=== PATIENT | female | born 1990 | race Caucasian/White ===

== ENCOUNTER → 2019-07-15 09:12 | Outpatient (CLI) | payer MEDICAID, SELFPAY ==
[2019-07-15 11:12] LABS: Estradiol 13.5 pg/mL; Follicle Stimulating Hormone 5.9 mIU/mL; Thyroid Stim Hormone (TSH) 2.02 uIU/mL (0.358-3.74)
[2019-07-15 11:31] LABS: Progesterone Level 0.47 ng/mL (See Comment)
[2019-07-18 08:08] LABS: Testosterone, % Free 1.79 % (0.50-2.80); Testosterone, Free 0.13 ng/dL (0.10-0.85); Testosterone, Total 7 ng/dL (8-48)
[2019-07-18 15:47] LABS: DHEA Sulfate 87.3 ug/dL (84.8-378.0)
== END ==
PROVIDERS: Family Provider Family Medicine; PCP Family Medicine
DX: R68.82 Decreased libido (principal); R61 Generalized hyperhidrosis
CPT/HCPCS: 36415; 82627; 82670; 83001; 84144; 84402; 84403; 84443; 82626

== ENCOUNTER → 2019-09-04 12:41 | Outpatient (CLI) | payer MEDICAID, SELFPAY ==
--- NOTE | 2019-09-04 12:45 | CT_ITS ---
STUDY: CT MAXILLOFACIAL SINUSES REASON FOR EXAM: Female, 28 years old. ALLERGIC RHINITIS DUE TO POLLEN, DEVIATED SEPTUM. RADIATION DOSAGE (If Supplied By Facility): CTDIvol = ( 29.38 ) mGy, DLP = ( 569.49 ) mGycm TECHNIQUE: The patient was scanned in a multi detector CT scanner. High resolution axial imaging was performed without the administration of intravenous contrast material. Sagittal and coronal images were reconstructed. Individualized dose optimization techniques were used for this CT. COMPARISON: None. FINDINGS: FRONTAL SINUSES: Normal aeration, without mucosal inflammatory disease. ETHMOIDAL SINUSES: Normal aeration, without mucosal inflammatory disease. MAXILLARY SINUSES: There is opacification of the right maxillary sinus. Minimal mucosal thickening of the right ethmoid sinus. SPHENOIDAL SINUSES: Normal aeration, without mucosal inflammatory disease. There is mucosal thickening along the right ostiomeatal complex. Normal bilateral middle turbinates. Normal bilateral inferior turbinates. Normal midline nasal septum. There is patency of the bilateral nasal airways. The visualized osseous structures are normal. The visualized bilateral orbital contents are normal. CT/Sinus/Facial Bone IMPRESSION: Opacification of the right maxillary sinus. Electronically Signed: Alan Mccarthy, at 13:09 EST , Service support ,
== END ==
LOC: CT 12:43
PROVIDERS: PCP Registered Nurse; Referring Provider Otolaryngology; Visit Provider Otolaryngology
DX: J30.1 Allergic rhinitis due to pollen (principal)
CPT/HCPCS: 70486

== ENCOUNTER → 2024-03-14 | Outpatient (CLI) | payer MEDICAID, SELFPAY ==
[2024-03-14 10:29] LABS: Absolute Lymphocyte Count 2.59 X10^3/uL (0.83-4.51); Absolute Neutrophil Count 2.4 X10^3/uL (2.0-7.7); Basophil# 0.05 X10^3/uL; Basophil% 0.9 % (0-1); Eosinophil# 0.24 X10^3/uL; Eosinophils% 4.3 % (0-5); Hematocrit 41.5 % (37-47); Hemoglobin 13.3 g/dL (12.0-15.0); Lymphocyte # 2.59 X10^3/ul (0.83-4.51); Lymphocyte % 46.3 % (19-41); Mean Corpuscular Hgb 29.2 pg (27.0-32.0); Mean Platelet Vol. 10.4 fl (6.2-12.0); Monocyte# 0.28 X10^3/uL; NRBC Flagged by Analyzer 0 % (0-5); Neutrophil # 2.43 X10^3/uL (2.7-7.7); Neutrophil % 43.3 % (47-70); Platelet Count 226 K/mm3 (150-450); RBC Distribution Width CV 12.8 % (11.6-14.6); RBC Distribution Width SD 42.4 fl (35.1-43.9); Red Blood Count 4.56 M/mm3 (4.2-5.4); White Blood Count 5.6 K/mm3 (4.4-11.0)
[2024-03-14 10:50] LABS: Vitamin D,25 Hydroxy 40.7 ng/mL
[2024-03-14 11:17] LABS: Magnesium 2.4 mg/dL (1.6-2.6); T4 Free Direct 0.87 ng/dL (0.76-1.46); Thyroid Stim Hormone (TSH) 1.53 uIU/mL (0.358-3.74)
[2024-03-16 10:41] LABS: Thyroid Peroxidase AB < 9 IU/mL (0-34)
== END | disposition home or self-care (01) ==
LOC: LAB 09:17
PROVIDERS: PCP Registered Nurse; Referring Provider Nurse Practitioner Women's Health; Visit Provider Nurse Practitioner Women's Health
DX: Z13.21 Encounter for screening for nutritional disorder (principal); R53.83 Other fatigue; Z13.29 Encounter for screening for other suspected endocrine disorder
CPT/HCPCS: 36415; 82306; 83735; 84439; 84443; 85025; 86376

== ENCOUNTER → 2024-07-08 | Outpatient (CLI) | payer MEDICAID, SELFPAY ==
--- NOTE | 2024-07-08 08:22 | NM_ITS ---
CLINICAL: 33-year-old female with history of postprandial nausea. SEMI-SOLID PHASE 99m Tc SULFUR COLLOID GASTRIC EMPTYING STUDY COMPARISON: None available FINDINGS: The patient was administered 1.1 mCi of 99m Tc sulfur colloid mixed with oatmeal and consumed per os. Image acquisitions in the anterior-posterior projections for a total of 60 minutes. There is prompt visualization of the stomach. There is no gastroesophageal reflux identified. The T ? raw data emptying was calculated to be 53.59 minutes, (Normal: 12-56 minutes). NM/Gastric Emptying Study IMPRESSION: 1. NORMAL 99m Tc sulfur colloid semi-solid phase (oatmeal) gastric emptying imaging examination. A. There is normal and preserved semi-solid phase gastric emptying compared to normal controls. (Mehdi et al, J Nucl Med Tech 38: 186, 2010). Electronically Signed: Damir Reyes DO at 8:31 EST ,
== END | disposition home or self-care (01) ==
LOC: NM 08:21
PROVIDERS: PCP Registered Nurse
DX: R11.0 Nausea (principal)
CPT/HCPCS: 78264; A9541

== ENCOUNTER → 2024-10-07 | Outpatient (CLI) | payer MEDICAID, SELFPAY ==
--- NOTE | 2024-10-07 15:00 | SP.MBSS_ITS ---
Modified Barium Swallow Patient Information Study Date: 10/07/24 Study Time: 13:00 Direct Billable Minutes: 76 Total Minutes procedure & reportin Diagnosis: Dysphaiga R13.10 Referring Physician: Nadira Appiah Reason for Referral: Assess swallow function, assess risk for aspiration, and determine recommendations for least restrictive diet textures and compensatory strategies to improve safety of swallow. Medical History: Pt referred for MBSS and esophagram after GI office visit for dysphagia 09/09/24. Pt is having difficulty swallowing pills and foods w/ sensation of them becoming caught in her throat. She denies hx of choking, but feels this globus sensation makes it feel harder to breath, as if her throat is tightening. She denies choking or need for Heimlich. She reports this difficulty has occurred for the past 9 months. It was much better w/ Protonix, but when taken off this medication it became much worse. She then went back on the medication and her swallowing difficulty was slightly better. She is now on omeprazole, which somewhat helps. PMH: Dysphagia, IBS, Nausea, Fatigue, GERD. Current Diet Ordered: Regular textures / Thin liquids Dentition: WNL and Natural Teeth Mental Status: WNL Respiratory Status: Oxygenating on Room Air Penetration-Aspiration Scale Penetration-Aspiration Scale: OBJECTIVE ASSESSMENT OF SWALLOW FUNCTION (QUANTITATIVE ? PER TRIAL): PENETRATION / ASPIRATION SCALE (SHELL): 1 = does not enter airway 2 = enters airway/above vocal folds/ejected 3 = enters airway/above vocal folds/not ejected 4 = enters airway/contacts vocal folds/ejected 5 = enters airway/contacts vocal folds/not ejected 6 = enters airway/below vocal folds/ejected 7 = enters airway/below vocal folds/not ejected despite effort 8 = enters airway/below vocal folds/no effort VIDEOFLOROSCOPIC SCALE SCORE (SHELL): Grade I = aspiration of material that has penetrated into the laryngeal vestibule, intact cough reflex Grade II = aspiration < 10 % of the bolus, intact cough reflex Grade III = aspiration of < 10 % of the bolus, reduced cough reflex or aspiration of > 10 % of the bolus, intact cough reflex Grade IV = aspiration of > 10 % of the bolus, reduced cough reflex Penetration-Aspiration Scale Score Thin Liquid via teaspoon: Result: 1= does not enter airway Thin Liquid via teaspoon Trial 2: Result: 1= does not enter airway Thin Liquid via small single sip: cup: Result: 1= does not enter airway [place] Thick Liquid via small single sip: cup: Result: 1= does not enter airway Pudding via teaspoon: Result: 1= does not enter airway Comment: Esophageal screen - Retention throughout esophagus, which mostly cleared w/ thin liquid wash during following trial. Thin Liquid via single sip: straw: Result: 1= does not enter airway Thin Liquid via sequential sips:straw: Result: 1= does not enter airway 1/2 Cookie: Result: 1= does not enter airway Comment: Esophageal screen - Retention throughout esophagus, which mostly cleared w/ thin liquid wash. Barium Tablet w/ water: Result: 1= does not enter airway Comment: Esophageal screen - Complete clearance. Oral Phase Labial Seal: No Labial Escape Tongue Control During Bolus Hold: Cohesive bolus between tongue to palatal seal Bolus Preparation/Mastication: Timely and efficient chewing and mashing Bolus Transport/Lingual Motion: Brisk tongue motion Oral Residue: Trace residue lining oral structures Pharyngeal Phase Initiation of Pharyngeal Swallow: Bolus head in valleculae Soft Palate Elevation: Trace column of contrast/air between soft palate and pharyngeal wall Laryngeal Elevation: Comp. Superior move thyroid cart w/comp. apprx arytenoid cart-epig pet Anterior Hyoid Excursion: Partial anterior movement Epiglottic Movement: Complete inversion Laryngeal Vestibule Closure at Height of Swallow: Complete; no air/contrast in laryngeal vestibule Pharyngeal Stripping Wave: Present - diminished Pharyngoesophageal Segment Opening: Complete distension and complete duration; no obstruction of flow Tongue Base Retraction: Trace column of contrast between tongue base & post. pharyngeal wall Pharyngeal Residue: Trace residue within or on pharyngeal structures Esophageal Phase Esophageal Clearance: Esophageal retention Diagnosis/Impression Diagnosis: Oropharyngeal swallow function grossly WNL; Esophageal dysphagia R13.14 Impression: Oropharyngeal swallow function grossly WNL. The esophageal phase is primarily marked by... -Retention of cookie and pudding throughout the esophagus, which mostly cleared w/ thin liquid washes. Recommendations Diet: Regular Textures (Moisten dry textures) and Thin Liquids Compensatory Strategies: Small Bites, Small Sips, Slow Rate, Alternate bi patrice/solids and sips/liquids (1:1 ratio), Sitting upright and Remain sitting upright for 30 minutes after PO intake Recommend Repeat Modified Barium Swallow: No Need for Skilled Speech Therapy Services: No Recommended Referrals: GI Consult (Ok for participation in esophagram, continue to follow w/ OP GI) and ENT Consult (Would consider nasopharyngoscopy due to globus sensation making pt feel that it is more difficult to breathe at times) Education Completed: 1. Described result of evaluation. Status Active ST Patient: Active Contact Information [facility] Speech Therapy:: Nikki Pelletier M.A. CCC-MEETING/EVENT PLANNER? Speech-Language Pathologist?? [facility] [address] [place] [address]? [email or web address]?? [phone]
== END | disposition home or self-care (01) ==
LOC: RAD 12:44
PROVIDERS: PCP Registered Nurse; Referring Provider Nurse Practitioner Acute Care; Visit Provider Nurse Practitioner Acute Care
DX: R13.10 Dysphagia, unspecified (principal); K58.0 Irritable bowel syndrome with diarrhea; R11.0 Nausea; R53.82 Chronic fatigue, unspecified
CPT/HCPCS: 74230; 92611

== ENCOUNTER → 2024-10-10 | Outpatient (CLI) | payer MEDICAID, SELFPAY ==
--- NOTE | 2024-10-10 08:20 | RAD_ITS ---
PROCEDURE: ESOPHAGUS DUAL CONTRAST REASON FOR EXAM: Upper esophageal dysphagia. TECHNIQUE: Following the ingestion of effervescent granules and high density barium, swallowing mechanism was evaluated under fluoroscopy in the oblique, AP, lateral, and RPO positions. Barium tablet was also utilized. Imaging sequences were documented as usual. FLUOROSCOPIC TIME: 64 sec Dose: 6.31 mGy FLUOROGRAPHIC IMAGES: 7 imaging sequences. COMPARISON: No relevant prior. FINDINGS: No abnormalities noted in the hypopharynx. Normal motility was seen. No constricting or obstructing lesions. No intraluminal filling defects. No ulcerations. No gastroesophageal reflux. No hiatal hernia. RAD/Esophagus Dual Contrast IMPRESSION: Normal double-contrast esophagram. Reading Location: [place] [id number]
== END | disposition home or self-care (01) ==
LOC: RAD 07:41
PROVIDERS: PCP Registered Nurse; Referring Provider Nurse Practitioner Acute Care; Visit Provider Nurse Practitioner Acute Care
DX: R13.10 Dysphagia, unspecified (principal); R11.0 Nausea; R53.82 Chronic fatigue, unspecified; K58.0 Irritable bowel syndrome with diarrhea
CPT/HCPCS: 74221

== ENCOUNTER 2024-10-29 10:18 | Observation (INO) | payer MEDICAID, SELFPAY ==
[2024-10-29] VITALS (7 sets, daily range): BP systolic 97–135; BP diastolic 67–91; PULSE 69–87; RESP 15–16; TEMP 36.4–37.1; O2SAT 98–100; BMI 23.3; BMI 23.6
--- NOTE | 2024-10-29 10:57 | EKG12_ITS ---
Test Reason : DIZZINESS Blood Pressure : */* mmHG Vent. Rate : 72 BPM Atrial Rate : 72 BPM P-R Int : 142 ms QRS Dur : 80 ms QT Int : 374 ms P-R-T Axes : 51 45 35 degrees QTcB Int : 409 ms Normal sinus rhythm Normal ECG Confirmed by MARISEL HASKINS, JANET ([id number]), editor house organ ANNI BECERRA ([id number]) on 10/30/2024 8:18:38 AM Referred By: Confirmed By: JANET JOINER MD
--- NOTE | 2024-10-29 10:58 | EX.ED.DYSGE1 ---
HPI History of Present Illness Chief Complaint: Dizziness Detail of Chief Complaint: Dizziness Informant: patient Narrative Narrative: Patient presents with complaint of dizziness that started this morning. Patient states that she got up and initially felt fine. She went downstairs and then started having sudden onset of spinning sensation. Nauseated with it but no vomiting. Turning her head certain ways makes the dizziness worse. She denies ear pain. She then subsequently developed a headache afterwards. She took Excedrin but did not really seem to help her headache is kind of diffuse. She has been getting headaches of late. She denies recent illness. She denies urinary symptoms. Denies falls or head injuries. No prior history of vertigo. [facility] Medical History Dysfunction of right rotator cuff IBS (irritable bowel syndrome) HLD (hyperlipidemia) Vitamin D deficiency GERD (gastroesophageal reflux disease) Nausea Dyspepsia Home Medications ?Medication ?Instructions ?Recorded ?Last Taken ?Type Saccharomyces boulardii 250 mg 250 mg PO DAILY 03/14/24 10/28/24 History capsule (Daily Probiotic (S. boulardii)) multivitamin (Daily Multi-Vitamin 1 tab PO DAILY 03/14/24 10/28/24 History tablet) ondansetron HCl 4 mg tablet 4 mg PO Q8H PRN nausea and 06/10/24 Unknown Rx vomiting #25 tabs levocetirizine 5 mg tablet (Xyzal) 5 mg PO DAILY 09/09/24 10/28/24 History omeprazole 40 mg capsule,delayed 40 mg PO BID 09/09/24 10/29/24 History release gqohvur-rgpnfzdqqowqx-rzkihkvm 250 2 tab PO Q6H PRN pain 10/29/24 10/29/24 History mg-250 mg-65 mg tablet (Excedrin Extra Strength) diphenhydramine HCl 25 mg capsule 50 mg PO Q6H PRN motion sickness 10/29/24 10/28/24 History (Aler-Cap) Allergy/AdvReac Type Severity Reaction Status Date / Time egg (eggs) Allergy Intermediate Other Verified 10/29/24 10:22 acetaminophen (From Vicodin) AdvReac Intermediate Rash Verified 10/29/24 10:22 azithromycin (From z pack) AdvReac Intermediate Vomiting Verified 10/29/24 10:22 hydrocodone (From Vicodin) AdvReac Intermediate Rash Verified 10/29/24 10:22 Qkoshpn-AVG-TpD Reductase AdvReac Intermediate achiness Verified 10/29/24 10:22 Inhibitor Family History no significant family his Surgical History H/O dilation and curettage Social History adopted: No household members: spouse and children housing: house number of children: 4 current occupational status: unemployed pets and animals: Yes leisure activities: sports history of recent travel: Yes ([place]) sexually active: Yes Smoking Status: Never smoker alcohol intake: never substance use type: does not use caffeine: Yes eating out: rarely or never during the past year weight has: remained stable what type of physical activity do you participate in: running yoshi/judaism: Alevism seatbelt use: always do you feel safe at home: Yes ROS ROS ED Review of Systems ROS Unobtainable: other Constitutional Constitutional ED: Reports lethargy; Denies chills, fever(s), sweats or weight loss Eyes Eyes: Denies blurry vision, change in vision or diplopia ENT ENT ED: Denies rhinorrhea or sore throat Cardiovascular Cardiovascular: Denies chest pain, orthopnea or racing heartbeat Respiratory/Chest Respiratory/Chest: Denies cough, dyspnea, dyspnea on exertion, orthopnea or sputum Gastrointestinal Gastrointestinal: Reports nausea; Denies abdominal pain, diarrhea or vomiting Genitourinary Genitourinary ED: Denies dysuria, hematuria or urinary frequency Musculoskeletal Musculoskeletal: Denies arthralgias, back pain, myalgias or neck pain Integumentary Denies abscess, Abrasions or rash Neurologic Neurologic: Reports headache(s) and other Details: Dizziness ; Denies weakness Psychiatric Psychiatric: Denies anxiety, depression or suicidal thoughts Endocrine Endocrinology: Denies polydipsia, polyphagia or polyuria Hematologic/Lymphatic Hematologic/Lymphatic: Denies easy bleeding, easy bruising or lymphadenopathy Allergic/Immunologic Allergic/Immunologic ED: Denies mouth swelling, tongue swelling or urticaria EXAM Physical Exam Const Vital Signs: 10/29/24 10:19 10/29/24 11:19 10/29/24 13:00 Temperature 97.6 F L Temperature Source Temporal Pulse Rate 87 69 Pulse Rate [Lying] 72 Pulse Rate [Sitting (for 1 minute prior to obtaining)] 74 Pulse Rate [Standing (for 1 minute prior to obtaining)] 76 Respiratory Rate 16 15 Blood Pressure 135/90 H 100/74 Blood Pressure [Lying] 119/83 H Blood Pressure [Sitting (for 1 minute prior to obtaining)] 123/89 H Blood Pressure [Standing (for 1 minute prior to obtaining)] 123/91 H Blood Pressure Mean 105 82 Blood Pressure Mean [Lying] 95 Blood Pressure Mean [Sitting (for 1 minute prior to obtaining)] 100 Blood Pressure Mean [Standing (for 1 minute prior to obtaining)] 101 Pulse Ox 100 100 Oxygen Delivery Method Room Air Room Air 10/29/24 13:46 Temperature 98.7 F Temperature Source Pulse Rate 70 Pulse Rate [Lying] Pulse Rate [Sitting (for 1 minute prior to obtaining)] Pulse Rate [Standing (for 1 minute prior to obtaining)] Respiratory Rate 16 Blood Pressure 107/78 Blood Pressure [Lying] Blood Pressure [Sitting (for 1 minute prior to obtaining)] Blood Pressure [Standing (for 1 minute prior to obtaining)] Blood Pressure Mean 87 Blood Pressure Mean [Lying] Blood Pressure Mean [Sitting (for 1 minute prior to obtaining)] Blood Pressure Mean [Standing (for 1 minute prior to obtaining)] Pulse Ox 100 Oxygen Delivery Method Positive well nourished and well developed General Appearance ED: well developed and NAD HEENT Reports TM's clear and moist mucous membranes normocephalic and atraumatic; Negative for trauma or tenderness Tympanic Membrane ED: Yes TM's clear Eyes PERRL and EOMs intact bilaterally General Eye ED: Negative for pale conjunctiva or scleral icterus Neck no lymphadenopathy, supple and no JVD General: Negative for tenderness Chest Wall inspection of chest normal and palpation of chest normal Chest: Negative for tenderness Resp normal respiratory effort and clear to auscultation bilaterally Effort and Inspection: Negative for respiratory distress or pain with movement Auscultation: Negative for rhonchi, wheezes or diminished lung sounds Cardio regular rate, regular rhythm, S1 normal heart sound, S2 normal heart sound and no murmurs Peripheral Pulses: pulses 2+ throughout GI normal to inspection, nondistended, normoactive bowel sounds, soft to palpation, non-tender, non-distended and no masses Back/Spine no CVA tenderness and no thoracic nor lumbar tenderness Extremity normal to inspection General Extremety ED: Negative for edema General Extremity: Negative for edema Neuro oriented x3, CN's II-XII intact bilaterally, no sensory deficits noted and gait normal Neuro Narrative: Finger-nose and heel prabhakar testing within normal limits, negative Romberg. Hallpike maneuver performed I do not appreciate any nystagmus although with head turn to the left does complain of a little bit of dizziness Sensorium / Orientation: awake, alert, oriented to person, oriented to place and oriented to time Motor Exam: strength 5/5 throughout and strength abnormal Psych mental status grossly normal Skin no rashes or lesions noted and no wounds MDM MDM MDM Narrative Medical decision making narrative: Patient presents with dizziness started this morning. Feeling off balance with walking and nauseated. Sudden onset. Also complains of a headache. On exam really unable to reproduce nystagmus. No focal deficits otherwise. No ataxia noted with mumrjf-ok-xqhq and dsky-yo-gyuf testing. She does seem somewhat off balance with ambulation. CT scan of the brain without contrast obtained was unremarkable. CBC with differential showed awake and 5.8 with hemoglobin 13 and platelet count of 230. Chemistries unremarkable. hCG was negative. Urine was normal. EKG obtained on arrival showed a sinus rhythm with rate of 72 bpm with no acute ST segment changes. While in the department initially she received Antivert 25 mg p.o. and she did not have any relief with that. I attempted to do the Hallpike maneuver on the patient and again she did not benefit from that. Patient was given Ativan 1 mg IV. She continues to complain of dizziness and feeling off balance. Will discuss with hospitalist to evaluate patient for admission. Clinically I still suspect a peripheral cause. Lab Data Attestation: I reviewed the patient's lab results. Labs: Laboratory Results - last 24 hr 10/29/24 10/29/24 11:10 11:30 WBC 5.8 RBC 4.41 Hgb 13.0 Hct 40.2 MCV 91.2 MCH 29.5 MCHC 32.3 RDW Std Deviation 41.6 RDW Coeff of Ramona 12.5 Plt Count 230 MPV 10.7 Sodium 139 Potassium 3.8 Chloride 104 Carbon Dioxide 23.7 Anion Gap 12 BUN 9 Creatinine 0.98 Estim Creat Clear Calc 68.53 Est GFR (MDRD) Non-Af 77 BUN/Creatinine Ratio 9.4 L Glucose 89 Calcium 9.3 Serum , Qual NEGATIVE Urine Color Straw Urine Clarity Clear Urine pH 7.0 Ur Specific [place] 1.005 Urine Protein 15 H Urine Glucose (UA) Normal Urine Ketones Negative Urine Occult Blood Negative Urine Nitrite Negative Urine Bilirubin Negative Urine Urobilinogen Normal Ur Leukocyte Esterase Negative Urine RBC 0 SEEN Urine WBC 0 SEEN Ur Squamous Epith Cells 0 SEEN Urine Bacteria 0 SEEN Urine Mucus 0 SEEN Radiography Diagnostic Testing: Clinical Impression(s) from Imaging Studies Brain CT 10/29/24 11:50 IMPRESSION: No acute intracranial hemorrhage, midline shift or mass effect. If symptoms persist, further evaluation with MRI is recommended. Reading Location: [facility] EKG Initial EKG: Attestation: I personally reviewed and interpreted this EKG as follows: Comments: Sinus rhythm with rate of 72 bpm with no acute ST segment changes Discharge Plan Dx/Rx/DC Orders Clinical Impression: Vertigo, Nausea, Dizziness Disposition Disposition: Acute Care [facility]
[2024-10-29] MEDS: Meclizine HCl 25 MG Tablet PO (11:12)
[2024-10-29] MEDS: Ondansetron 4 MG/2 ML Vial IV (11:12)
[2024-10-29] MEDS: 0.9% Normal Saline (1000mL) 1,000 ML 1000 ML IV (11:13)
[2024-10-29 11:19] LABS: Hematocrit 40.2 % (37-47); Mean Corp Hgb Conc 32.3 g/dL (32-36); Mean Corpuscular Hgb 29.5 pg (27.0-32.0); Mean Corpuscular Volume 91.2 fL (81-99); Mean Platelet Vol. 10.7 fl (6.2-12.0); Platelet Count 230 K/mm3 (150-450); RBC Distribution Width CV 12.5 % (11.6-14.6); RBC Distribution Width SD 41.6 fl (35.1-43.9); Red Blood Count 4.41 M/mm3 (4.2-5.4); White Blood Count 5.8 K/mm3 (4.4-11.0)
[2024-10-29 11:38] LABS: Bacteria 0 SEEN /hpf (None Seen); Mucous, Urine 0 SEEN /hpf (<or=2+); Squamous Epithelial Cells - UA 0 SEEN /hpf (5-10); White Blood Cells 0 SEEN /hpf (0-5)
[2024-10-29 11:43] LABS: Internal QC Validated? YES +Cl - CLEAR BKGD; Pregnancy, Serum, hCG Quali. NEGATIVE Negative; Record Kit Lot#, Serum Preg. 899023
--- NOTE | 2024-10-29 11:50 | CT_ITS ---
EXAM: CT Head Without Intravenous Contrast CLINICAL INDICATION: DIZZINESS, HEADACHE TECHNIQUE: Axial computed tomography images of the head/brain without intravenous contrast. This CT exam was performed using one or more of the following dose reduction techniques: automated exposure control, adjustment of the mA and/or kV according to patient size, and/or use of iterative reconstruction technique. COMPARISON: No relevant prior studies available. FINDINGS: BRAIN AND EXTRA-AXIAL SPACES: No acute intracranial hemorrhage, midline shift or mass effect. If symptoms persist, further evaluation with MRI is recommended. No significant white matter disease. BONES/JOINTS: Unremarkable. No acute fracture. SOFT TISSUES: Unremarkable. SINUSES: Unremarkable as visualized. No acute sinusitis. MASTOID AIR CELLS: Unremarkable as visualized. No mastoid effusion. CT/Brain/Head without Contrast IMPRESSION: No acute intracranial hemorrhage, midline shift or mass effect. If symptoms per sist, further evaluation with MRI is recommended. Reading [facility]
[2024-10-29 11:52] LABS: Anion Gap 12 (5-15); BUN 9 mg/dL (4-19); BUN/Creat Ratio 9.4 RATIO (10-20); Calcium,Total 9.3 mg/dL (7.6-11.0); Carbon Dioxide 23.7 mmol/L (21.0-32.0); Chloride 104 mmol/L (98-108); Creatinine, Serum 0.98 mg/dL (0.70-1.20); EST Glomerular Filtration Rate 77 (>60); Estimated Creatinine Clearance 68.53 ml/min (50-250); Glucose 89 mg/dL (70-99); Potassium 3.8 mmol/L (3.3-5.1); Sodium Level 139 mmol/L (133-145)
[2024-10-29 11:56] LABS: Color, Urine Straw (Yellow); Glucose, Dipstick Normal (Normal); Ketone-Dipstick Negative (Negative); Leukocyte Esterase-Dipstick Negative /ul (Negative); Nitrite-Dipstick Negative (Negative); Occult Blood-Urine Negative /ul (Negative); Protein-Dipstick 15 mg/dl (Negative); Specific Gravity, Urine 1.005 (1.002-1.030); Urine Bilirubin Dipstick Negative (Negative); Urine Clarity Clear (Clear); Urine Urobilinogen Normal (Normal)
[2024-10-29 12:19] LABS: Red Blood Cells-Urine 0 SEEN /hpf (0-5)
[2024-10-29] MEDS: Lorazepam 2 MG/ML WCH Syringe 1 MG IV (13:09)
--- NOTE | 2024-10-29 14:11 | PCM.HP.STD ---
HPI - General General Date of Admission: 10/29/24 Date of Service: 10/29/24 Chief Complaint: Dizziness HPI Narrative FREDI ARANA, is a 34-year-old female with history of GERD presented to [facility] ED 10/29/2024 with dizziness that started this morning. Initially felt fine when she woke up but then went downstairs and had a sudden spinning sensation, she was nauseated with no vomiting and turning her head made the dizziness worse, she subsequently developed a headache. In the ED CT unremarkable. Due to continued symptoms despite meclizine and Ativan hospitalist contacted for admission. Patient evaluated at bedside. She reports that she felt okay this morning and when she went downstairs she became dizzy and then developed some pressure behind her right eye, she took Excedrin Migraine which did not help and due to persistent symptoms and nausea she came to the ED, initially felt a little bit better with fluids and Zofran but feeling worse again, denies that symptoms are positional and says it is when she closes her eyes and when they are open, does get weekly allergy shots but said this week her allergies have not been bad and she denies any nasal congestion or fever, no changes in her hearing. Has been more cold recently especially her feet which she feels will go numb at times but this is not changed over the past 24 hours, has been having problems with swallowing and reports being worked up from a GI basis and that food will get stuck in her esophagus and then ultimately go down, she is pending further workup in [place]. Currently does still have a little bit of residual pressure behind her right eye and is feeling dizzy, has never had anything like this happen before, denies any focal other deficits. [facility] Medical History Dysfunction of right rotator cuff IBS (irritable bowel syndrome) HLD (hyperlipidemia) Vitamin D deficiency GERD (gastroesophageal reflux disease) Nausea Dyspepsia Home Medications ?Medication ?Instructions ?Recorded ?Last Taken ?Type Saccharomyces boulardii 250 mg 250 mg PO DAILY 03/14/24 10/28/24 History capsule (Daily Probiotic (S. boulardii)) multivitamin (Daily Multi-Vitamin 1 tab PO DAILY 03/14/24 10/28/24 History tablet) ondansetron HCl 4 mg tablet 4 mg PO Q8H PRN nausea and 06/10/24 Unknown Rx vomiting #25 tabs levocetirizine 5 mg tablet (Xyzal) 5 mg PO DAILY 09/09/24 10/28/24 History omeprazole 40 mg capsule,delayed 40 mg PO BID 09/09/24 10/29/24 History release iluvplv-mcufvzjppyrdw-ypplnagf 250 2 tab PO Q6H PRN pain 10/29/24 10/29/24 History mg-250 mg-65 mg tablet (Excedrin Extra Strength) diphenhydramine HCl 25 mg capsule 50 mg PO Q6H PRN motion sickness 10/29/24 10/28/24 History (Aler-Cap) Allergy/AdvReac Type Severity Reaction Status Date / Time egg (eggs) Allergy Intermediate Other Verified 10/29/24 10:22 acetaminophen (From Vicodin) AdvReac Intermediate Rash Verified 10/29/24 10:22 azithromycin (From z pack) AdvReac Intermediate Vomiting Verified 10/29/24 10:22 hydrocodone (From Vicodin) AdvReac Intermediate Rash Verified 10/29/24 10:22 Uwzpbvw-PIU-BmY Reductase AdvReac Intermediate achiness Verified 10/29/24 10:22 Inhibitor Family History no significant family his Surgical History H/O dilation and curettage Social History adopted: No household members: spouse and children housing: house number of children: 4 current occupational status: unemployed pets and animals: Yes leisure activities: sports history of recent travel: Yes ([place]) sexually active: Yes Smoking Status: Never smoker alcohol intake: never substance use type: does not use caffeine: Yes eating out: rarely or never during the past year weight has: remained stable what type of physical activity do you participate in: running yoshi/congregational: Yazdanism seatbelt use: always do you feel safe at home: Yes ROS ROS Narrative General: Denies fever/chills HENT: Headache behind right eye, denies stuffy nose, denies sore throat EYES: Denies changes in vision Resp: Denies cough, denies shortness of breath Cardiac: Denies chest pain GI: Denies abdominal pain, denies changes in bowel, some nausea, intermittent difficulty with swallowing : Denies changes in urination Extremity: Denies swelling MSK: Denies focal weakness Neuro: Denies any current numbness/tingling Heme: Denies any bleeding or bruising Skin: Denies rashes Psychiatric: No complaints voiced Vital Signs Vital Signs Vital Signs: 10/29/24 10:19 10/29/24 11:19 10/29/24 13:00 Temperature 97.6 F L Temperature Source Temporal Pulse Rate 87 69 Pulse Rate [Lying] 72 Pulse Rate [Sitting (for 1 minute prior to obtaining)] 74 Pulse Rate [Standing (for 1 minute prior to obtaining)] 76 Respiratory Rate 16 15 Blood Pressure 135/90 H 100/74 Blood Pressure [Lying] 119/83 H Blood Pressure [Sitting (for 1 minute prior to obtaining)] 123/89 H Blood Pressure [Standing (for 1 minute prior to obtaining)] 123/91 H Blood Pressure Mean 105 82 Blood Pressure Mean [Lying] 95 Blood Pressure Mean [Sitting (for 1 minute prior to obtaining)] 100 Blood Pressure Mean [Standing (for 1 minute prior to obtaining)] 101 Pulse Ox 100 100 Oxygen Delivery Method Room Air Room Air 10/29/24 13:46 Temperature 98.7 F Temperature Source Pulse Rate 70 Pulse Rate [Lying] Pulse Rate [Sitting (for 1 minute prior to obtaining)] Pulse Rate [Standing (for 1 minute prior to obtaining)] Respiratory Rate 16 Blood Pressure 107/78 Blood Pressure [Lying] Blood Pressure [Sitting (for 1 minute prior to obtaining)] Blood Pressure [Standing (for 1 minute prior to obtaining)] Blood Pressure Mean 87 Blood Pressure Mean [Lying] Blood Pressure Mean [Sitting (for 1 minute prior to obtaining)] Blood Pressure Mean [Standing (for 1 minute prior to obtaining)] Pulse Ox 100 Oxygen Delivery Method Weight Weight: 61.689 kg Body Mass Index (BMI) 23.3 Physical Exam Narrative General: Alert, oriented, no apparent distress HEENT: Atraumatic, normocephalic Eyes: Anicteric, normal conjunctiva, extraocular movements intact, pupils equal, no sustained nystagmus, rotational nor vertical nystagmus Neck: Supple Respiratory: Clear to auscultation bilaterally, normal respiratory effort Cardiovascular: Regular rate and rhythm GI: Soft, nontender, nondistended Extremities: No edema Musculoskeletal: Strength 5 out of 5 in right upper extremity, 5 out of 5 left upper extremity, 5 out of 5 right lower extremity, 5 out of 5 left lower extremity Neuro: No overt focal neurological deficits, cranial nerves II through XII intact, [id number] without significant difficulty bilaterally Skin: No rashes appreciated Psych: Cooperative Results Lab / Micro Data 10/29/24 11:10 10/29/24 11:10 Labs: Laboratory Results - last 24 hr 10/29/24 11:10: WBC 5.8, RBC 4.41, Hgb 13.0, Hct 40.2, MCV 91.2, MCH 29.5, MCHC 32.3, RDW Std Deviation 41.6, RDW Coeff of Ramona 12.5, Plt Count 230, MPV 10.7, Sodium 139, Potassium 3.8, Chloride 104, Carbon Dioxide 23.7, Anion Gap 12, BUN 9, Creatinine 0.98, Estim Creat Clear Calc 68.53, Est GFR (MDRD) Non-Af 77, BUN/Creatinine Ratio 9.4 L, Glucose 89, Calcium 9.3, Serum , Qual NEGATIVE 10/29/24 11:30: Urine Color Straw, Urine Clarity Clear, Urine pH 7.0, Ur Specific [place] 1.005, Urine Protein 15 H, Urine Glucose (UA) Normal, Urine Ketones Negative, Urine Occult Blood Negative, Urine Nitrite Negative, Urine Bilirubin Negative, Urine Urobilinogen Normal, Ur Leukocyte Esterase Negative, Urine RBC 0 SEEN, Urine WBC 0 SEEN, Ur Squamous Epith Cells 0 SEEN, Urine Bacteria 0 SEEN, Urine Mucus 0 SEEN Imaging Radiology Impression Brain CT 10/29/24 11:50 IMPRESSION: No acute intracranial hemorrhage, midline shift or mass effect. If symptoms persist, further evaluation with MRI is recommended. Reading [facility] Assessment & Plan Assessment/Plan (1) Dizziness: PLAN: Plan # Persistent vertigo -Suspect peripheral but given persistent nature will rule out CVA -Admit to tele -CT head with no acute process -MRI ordered -NIH q4hr -asa, holding on statin due to listed allergy -Would recommend echo with bubble study if MRI positive, may be able to forego if this is negative -PT/OT/Speech eval -Teleneuro consult placed for persistent vertigo #GERD -Continue PPI # Seasonal allergies -Gets weekly allergy shots, reports no current allergy symptoms per patient # Feeling cold -Patient has been feeling very cold over the past couple of months more so than normal, will check TSH # Difficulty with swallowing -Occasionally gets food stuck in esophagus, following with GI in outpatient basis -Pending further workup in [place] #DVT ppx: SCDs Emily Carson MD Charges/Coding Visit Charges Inpatient E&M: 39456 Init Hosp L2
--- NOTE | 2024-10-29 14:30 | MRI_ITS ---
EXAM: MRI brain without contrast. CLINICAL HISTORY: Rule out central causes of vertigo. COMPARISON: CT scan of brain dated 10/29/2024 TECHNIQUE: MRI of the brain was performed without the use of IV contrast utilizing routine axial, sagittal and coronal MRI images of the brain FINDINGS: There is no hemorrhage, hematoma or mass effect. [place]ill[place] and white matter is well differentiated. Cisterns sulci and ventricles are within normal limits. Visualized intraorbital structures and paranasal sinuses are unremarkable. Paranasal sinuses are unremarkable. Osseous structures are unremarkable. MRI/Brain without Contrast IMPRESSION: Unremarkable unenhanced MRI images of the brain. Reading Location: [id number]
[2024-10-29] MEDS: 0.9% Normal Saline (1000mL) 1,000 ML 50 ML IV (18:54)
[2024-10-29] MEDS: LORazepam 0.5 MG Tablet PO (18:54)
[2024-10-29] MEDS: MELATONIN 3 MG TABLET PO (21:21)
[2024-10-30 02:26] VITALS: BP 92/69; PULSE 64; RESP 16; TEMP 36.6; O2SAT 96
[2024-10-30 06:00] LABS: Absolute Lymphocyte Count 3.03 X10^3/uL (0.83-4.51); Absolute Neutrophil Count 1.7 X10^3/uL (2.0-7.7); Basophil# 0.03 X10^3/uL; Basophil% 0.6 % (0-1); Eosinophil# 0.27 X10^3/uL; Eosinophils% 5.1 % (0-5); Hematocrit 36.3 % (37-47); Hemoglobin 11.8 g/dL (12.0-15.0); Lymphocyte # 3.03 X10^3/ul (0.83-4.51); Lymphocyte % 57.3 % (19-41); Mean Corp Hgb Conc 32.5 g/dL (32-36); Mean Corpuscular Hgb 29.5 pg (27.0-32.0); Mean Corpuscular Volume 90.8 fL (81-99); Mean Platelet Vol. 9.5 fl (6.2-12.0); Monocyte# 0.23 X10^3/uL; Monocyte% 4.3 % (0-10); NRBC Flagged by Analyzer 0 % (0-5); Neutrophil # 1.73 X10^3/uL (2.7-7.7); Neutrophil % 32.7 % (47-70); Platelet Count 256 K/mm3 (150-450); RBC Distribution Width CV 12.6 % (11.6-14.6); RBC Distribution Width SD 41.5 fl (35.1-43.9); White Blood Count 5.3 K/mm3 (4.4-11.0)
[2024-10-30 06:23] LABS: Hemoglobin A1c 4.8 % (<=5.6)
[2024-10-30 06:34] LABS: Anion Gap 10 (5-15); BUN 9 mg/dL (4-19); BUN/Creat Ratio 9.4 RATIO (10-20); Calcium,Total 8.9 mg/dL (7.6-11.0); Carbon Dioxide 20.4 mmol/L (21.0-32.0); Chloride 109 mmol/L (98-108); Cholesterol 166 mg/dL (<=200); Creatinine, Serum 0.99 mg/dL (0.70-1.20); EST Glomerular Filtration Rate 76 (>60); Estimated Creatinine Clearance 67.84 ml/min (50-250); Glucose 89 mg/dL (70-99); High Density Lipoprotein 46 mg/dL; Low Density Lipoprotein Calc. 103 mg/dL; Sodium Level 140 mmol/L (133-145); Triglycerides 86 mg/dL; Very Low Density Lipoprotein 17 mg/dL (5-40); cholesterol:hdl ratio screen 3.64
--- NOTE | 2024-10-30 08:40 | PCM.PN.HOSP ---
Reason for Visit Reason for Visit: Diagnoses Dizziness and giddiness (10/29/24) Subjective Subjective Dizziness improved. Worse with bright lights and movements. Never had this prior. Objective Data Objective Data Vital Signs: Vital Signs Temp Pulse Resp BP Pulse Ox O2 Del Method 36.6 C 64 16 92/69 96 Room Air 10/30/24 02:26 10/30/24 02:26 10/30/24 02:26 10/30/24 02:26 10/30/24 02:10/30/24 08:14 Oxygen Delivery Method Room Air Weight: 62.6 kg Body Mass Index (BMI) 23.6 Intake & Output: Intake and Output for Last 24 Hours 10/28/24 10/29/24 10/30/24 23:59 23:59 23:59 Intake Total 3360.83 / 3360.83 Output Total 500 / 500 Balance 2860.83 / 2860.83 Lab / Micro Data 10/30/24 05:30 10/30/24 05:30 Labs: Laboratory Results - last 24 hr 10/29/24 11:10: WBC 5.8, RBC 4.41, Hgb 13.0, Hct 40.2, MCV 91.2, MCH 29.5, MCHC 32.3, RDW Std Deviation 41.6, RDW Coeff of Ramona 12.5, Plt Count 230, MPV 10.7, Sodium 139, Potassium 3.8, Chloride 104, Carbon Dioxide 23.7, Anion Gap 12, BUN 9, Creatinine 0.98, Estim Creat Clear Calc 68.53, Est GFR (MDRD) Non-Af 77, BUN/Creatinine Ratio 9.4 L, Glucose 89, Calcium 9.3, Serum , Qual NEGATIVE 10/29/24 11:30: Urine Color Straw, Urine Clarity Clear, Urine pH 7.0, Ur Specific [place] 1.005, Urine Protein 15 H, Urine Glucose (UA) Normal, Urine Ketones Negative, Urine Occult Blood Negative, Urine Nitrite Negative, Urine Bilirubin Negative, Urine Urobilinogen Normal, Ur Leukocyte Esterase Negative, Urine RBC 0 SEEN, Urine WBC 0 SEEN, Ur Squamous Epith Cells 0 SEEN, Urine Bacteria 0 SEEN, Urine Mucus 0 SEEN 10/30/24 05:30: WBC 5.3, RBC 4.00 L, Hgb 11.8 L, Hct 36.3 L, MCV 90.8, MCH 29.5, MCHC 32.5, RDW Std Deviation 41.5, RDW Coeff of Ramona 12.6, Plt Count 256, MPV 9.5, Immature Gran % (Auto) 0.000, Neut % (Auto) 32.7 L, Lymph % (Auto) 57.3 H, [place] % (Auto) 4.3, Eos % (Auto) 5.1 H, Baso % (Auto) 0.6, Absolute Neuts (auto) 1.7 L, Absolute Lymphs (auto) 3.03, Nucleated RBC % 0, Sodium 140, Potassium 4.0, Chloride 109 H, Carbon Dioxide 20.4 L, Anion Gap 10, BUN 9, Creatinine 0.99, Estim Creat Clear Calc 67.84, Est GFR (MDRD) Non-Af 76, BUN/Creatinine Ratio 9.4 L, Glucose 89, Hemoglobin A1c 4.8 L, Calcium 8.9, Triglycerides 86, Cholesterol 166, LDL Cholesterol, Calc 103, VLDL Cholesterol 17, HDL Cholesterol 46, Cholesterol/HDL Ratio 3.64, TSH 2.510 Radiography Diagnostic Testing: Radiology Impression Brain CT 10/29/24 11:50 IMPRESSION: No acute intracranial hemorrhage, midline shift or mass effect. If symptoms persist, further evaluation with MRI is recommended. Reading Location[facility] Brain MRI 10/29/24 14:30 IMPRESSION: Unremarkable unenhanced MRI images of the brain. Reading Location: [id number] Physical Exam Const alert and no apparent distress Eyes Eyes Narrative: left lateral nystagmus that fatigued after several beats. Assessment & Plan Assessment/Plan (1) Vertigo: PLAN: 2/2 BPPV. MRI negative for CVA. DC with oupt vestibular therapy and PRN meclizine.
[2024-10-30 09:46] VITALS: BP 103/77; PULSE 77; RESP 16; TEMP 36.6; O2SAT 100
[2024-10-30 11:15] VITALS: O2SAT 98
--- NOTE | 2024-10-30 12:07 | DS.PCM_ITS ---
Providers Date of Admission: 10/29/24 Primary Care Physician: LISA Tate Consultations 10/29/24 14:46 Consult: Tele-Neurology Routine Consulting Provider: [facility] Reason for Consult: persistent vertigo EMERGENT Consult: Yes MD Notified: Yes Date Notified: 10/29/24 Time Notified: 15:52 Method of Notification: Answering Service Nursing Unit Staff Notify [facility] of Tele-Neurology Consult: Yes Reason For Visit: INTRACTABLE DIZZINESS, VERTIGO Diagnosis Discharge Diagnosis (1) Vertigo: Status: Acute Code(s): R42 - Dizziness and giddiness Plan: / BPPV. MRI negative for CVA. DC with oupt vestibular therapy and PRN meclizine. Medications at Discharge Home Medications Saccharomyces boulardii 250 mg capsule (Daily Probiotic (S. boulardii)) 250 mg PO DAILY stomach 03/14/24 multivitamin (Daily Multi-Vitamin tablet) 1 tab PO DAILY supplement 03/14/24 ondansetron HCl 4 mg tablet 4 mg PO Q8H PRN nausea and vomiting #25 tabs 06/10/24 levocetirizine 5 mg tablet (Xyzal) 5 mg PO DAILY allergies 09/09/24 omeprazole 40 mg capsule,delayed release 40 mg PO BID gerd 09/09/24 mphyosb-jactyntrbtgbb-szwztgki 250 mg-250 mg-65 mg tablet (Excedrin Extra Strength) 2 tab PO Q6H PRN pain 10/29/24 diphenhydramine HCl 25 mg capsule (Aler-Cap) 50 mg PO Q6H PRN Allergies 10/29/24 docusate sodium 100 mg capsule (Colace) 100 mg PO DAILY PRN constipation 10/29/24 meclizine 12.5 mg tablet 12.5 mg PO TID PRN dizziness or vertigo #12 tabs 10/30/24 Hospital Course Operations None Procedures None Weight / BMI Weight Weight: 62.6 kg Body Mass Index (BMI) 23.6 ABG / Lab / Microbiology Data 10/30/24 05:30 10/30/24 05:30 Laboratory: Laboratory Results - last 24 hr 10/29/24 11:30: Urine RBC 0 SEEN, Urine WBC 0 SEEN, Ur Squamous Epith Cells 0 SEEN, Urine Bacteria 0 SEEN, Urine Mucus 0 SEEN 10/30/24 05:30: WBC 5.3, RBC 4.00 L, Hgb 11.8 L, Hct 36.3 L, MCV 90.8, MCH 29.5, MCHC 32.5, RDW Std Deviation 41.5, RDW Coeff of Ramona 12.6, Plt Count 256, MPV 9.5, Immature Gran % (Auto) 0.000, Neut % (Auto) 32.7 L, Lymph % (Auto) 57.3 H, [place] % (Auto) 4.3, Eos % (Auto) 5.1 H, Baso % (Auto) 0.6, Absolute Neuts (auto) 1.7 L, Absolute Lymphs (auto) 3.03, Nucleated RBC % 0, Sodium 140, Potassium 4.0, Chloride 109 H, Carbon Dioxide 20.4 L, Anion Gap 10, BUN 9, Creatinine 0.99, Estim Creat Clear Calc 67.84, Est GFR (MDRD) Non-Af 76, BUN/Creatinine Ratio 9.4 L, Glucose 89, Hemoglobin A1c 4.8 L, Calcium 8.9, Triglycerides 86, Cholesterol 166, LDL Cholesterol, Calc 103, VLDL Cholesterol 17, HDL Cholesterol 46, Cholesterol/HDL Ratio 3.64, TSH 2.510 Radiography Diagnostic Testing: Radiology Impression Brain CT 10/29/24 11:50 IMPRESSION: No acute intracranial hemorrhage, midline shift or mass effect. If symptoms persist, further evaluation with MRI is recommended. Reading Location: [facility] Brain MRI 10/29/24 14:30 IMPRESSION: Unremarkable unenhanced MRI images of the brain. Reading Location: [id number] D/C Instructions Discharge Diet: No restrictions DC O2, CPAP, BIPAP Needs Home O2 Discharge instructions: No Meaningful Use Info Meaningful Use Meaningful Use Diagnoses (Choose all that apply): None applicable Ischemic Stroke Statin Dosing Therapy Reference: STATIN DOSE THERAPY REFERENCE: * Patients > 75 years receive moderate or high dose statin therapy. * Patients 75 years or YOUNGER should receive HIGH intensity statin dose unless contraindicated. You will be required to document reason for non-treatment if statin daily dose does not meet guidelines. HIGH DOSE STATIN THERAPY DAILY Atorvastatin > than or = to 40 mg Rosuvastatin > than or = to 20 mg Amlodipine + Atorvastatin > than or = to 2.5/40 mg Ezetimibe + Simvastatin 10/80 mg Simvastatin 80mg Discharge Plan Admission Admit Date/Time: 10/29/24 14:10 Primary Reason for Your Visit: vertigo Attending Provider: Terence Pressley Primary Care Provider: Nancie Sheppard ACCOUNTS ADJUSTABLE CLERK Consulting Providers: Porfirio Gordon; Michelle Evans; Ilene Rivera; Cheryl Llanos; Angelica Burgess; Mario Pringle; Gloria Araiza; Germain Puckett; Lyndon Field; Bandar Manzano; Betina Almeida; Christian Jung; Cathy Villa; Shaina Taylor; Sulma Velez; Cristobal Valenzuela; Jossie Goetz; Palomo Coley; Yennifer Townsend; Eileen Mckenzie; Emily Carson Instructions Additional Instructions / Restrictions: You had vertigo secondary to benign paroxysmal positional vertigo (BPPV). This is generally self-limited and resolves on its own. Occasionally, people with need to have vestibular therapy where a therapist can do head positions to remove the crystal. You can even do these yourself at home. Look up videos on [employer] goodman for those techniques if you are interested. You will have a prescription for meclizine (Antivert) to help you dizziness if needed (do not take with Benadryl as it may make you too groggy). Discharge Orders/Prescriptions Prescriptions: New meclizine 12.5 mg tablet 12.5 mg PO TID PRN (Reason: dizziness or vertigo) Qty: 12 0RF Continued multivitamin [Daily Multi-Vitamin] Tablet 1 tab PO DAILY Saccharomyces boulardii [Daily Probiotic (S. boulardii)] 250 mg capsule 250 mg PO DAILY ondansetron HCl 4 mg tablet 4 mg PO Q8H PRN (Reason: nausea and vomiting) Qty: 25 2RF levocetirizine [Xyzal] 5 mg tablet 5 mg PO DAILY omeprazole 40 mg capsule,delayed release(DR/EC) 40 mg PO BID diphenhydramine HCl [Aler-Cap] 25 mg capsule 50 mg PO Q6H PRN (Reason: Allergies) Excedrin Extra Strength 250-250-65 mg tablet 2 tab PO Q6H PRN (Reason: pain) docusate sodium [Colace] 100 mg capsule 100 mg PO DAILY PRN (Reason: constipation) Referrals / Follow Up: Nancie Sheppard ACCOUNTS ADJUSTABLE CLERK, ACCOUNTS ADJUSTABLE CLERK-C [Primary Care Provider] - Within 2 Weeks Disposition Disposition (needs filled in before D/C Order can be placed): Home, Self Care Charges/Coding Visit Charges Inpatient E&M: 92204 Disch Hosp
[2024-10-30] MEDS: Ibuprofen 600 MG Tablet PO (12:31)
--- NOTE | 2024-10-30 12:47 | NEURO.CONS ---
Assessment and Plan: Neuro Assessment/Plan 34 y/o woman with h/o GERD p/w dizziness/vertigo started yesterday morning while going downstairs along with nausea followed by headache. She reports that symptoms gets worse with any head movement and gets relieved by eyes closing and lights off. She now describes as a constant headache. She does get weekly allergy shots but said this week her allergies have not been bad and she denies any nasal congestion or fever, no changes in her hearing. She has been having problems with swallowing and reports being worked up from a GI basis and that food will get stuck in her esophagus and then ultimately go down, she is pending further workup in [place]. Currently does still have a little bit of residual pressure behind her right eye and is feeling dizzy, has never had anything like this happen before, denies any focal other deficits. Today, she still reports of constant headache along with mild vertigo. NIHSS-1 for mild ataxia in RUE and RLE. MRI brain - no acute stroke. CT Head - no acute intracranial process. A1c-4.8. LDL-103. Diagnosis: Concern for central vertigo, needs to rule out central etiology Plan: Follow up CTA head and neck along with MRI Brain w/ judah (thin slices through brainstem). Vestibular PT. Follow up with ENT. I personally attended this patient and spent a total time of 70 minutes evaluating this patient including clinical assessment, review of chart, medical history imaging, and determining appropriate treatment and workup. HPI Consult Data Date of Consult: 10/31/24 HPI Narrative HPI Narrative: 34 y/o woman with h/o GERD p/w dizziness/vertigo started yesterday morning while going downstairs along with nausea followed by headache. She reports that symptoms gets worse with any head movement and gets relieved by eyes closing and lights off. She now describes as a constant headache. She does get weekly allergy shots but said this week her allergies have not been bad and she denies any nasal congestion or fever, no changes in her hearing. She has been having problems with swallowing and reports being worked up from a GI basis and that food will get stuck in her esophagus and then ultimately go down, she is pending further workup in [place]. Currently does still have a little bit of residual pressure behind her right eye and is feeling dizzy, has never had anything like this happen before, denies any focal other deficits. Today, she still reports of constant headache along with mild vertigo. NIHSS-1 for mild ataxia in RUE and RLE. [facility] Medical History Dysfunction of right rotator cuff IBS (irritable bowel syndrome) HLD (hyperlipidemia) Vitamin D deficiency GERD (gastroesophageal reflux disease) Nausea Dyspepsia Home Medications ?Medication ?Instructions ?Recorded ?Last Taken ?Type Saccharomyces boulardii 250 mg 250 mg PO DAILY stomach 03/14/24 10/28/24 History capsule (Daily Probiotic (S. boulardii)) multivitamin (Daily Multi-Vitamin 1 tab PO DAILY supplement 03/14/24 10/28/24 History tablet) ondansetron HCl 4 mg tablet 4 mg PO Q8H PRN nausea and 06/10/24 Unknown Rx vomiting #25 tabs levocetirizine 5 mg tablet (Xyzal) 5 mg PO DAILY allergies 09/09/24 10/28/24 History omeprazole 40 mg capsule,delayed 40 mg PO BID gerd 09/09/24 10/29/24 History release puixfcn-tzciwghkchwry-lbgtuqmg 250 2 tab PO Q6H PRN pain 10/29/24 10/29/24 History mg-250 mg-65 mg tablet (Excedrin Extra Strength) diphenhydramine HCl 25 mg capsule 50 mg PO Q6H PRN Allergies 10/29/24 10/28/24 History (Aler-Cap) docusate sodium 100 mg capsule 100 mg PO DAILY PRN constipation 10/29/24 Unknown History (Colace) meclizine 12.5 mg tablet 12.5 mg PO TID PRN dizziness or 10/30/24 Unknown Rx vertigo #12 tabs Allergy/AdvReac Type Severity Reaction Status Date / Time egg (eggs) Allergy Severe Other Verified 10/29/24 14:51 acetaminophen (From Vicodin) AdvReac Intermediate Rash Verified 10/29/24 10:22 azithromycin (From z pack) AdvReac Intermediate Vomiting Verified 10/29/24 10:22 hydrocodone (From Vicodin) AdvReac Intermediate Rash Verified 10/29/24 10:22 Djmeytr-BWG-LzI Reductase AdvReac Intermediate achiness Verified 10/29/24 10:22 Inhibitor Family History no significant family his Surgical History H/O dilation and curettage Social History adopted: No household members: spouse and children housing: house number of children: 4 current occupational status: unemployed pets and animals: Yes leisure activities: sports history of recent travel: Yes ([place]) sexually active: Yes Smoking Status: Never smoker alcohol intake: never substance use type: does not use caffeine: Yes eating out: rarely or never during the past year weight has: remained stable what type of physical activity do you participate in: running yoshi/yazidi: Religious seatbelt use: always do you feel safe at home: Yes Vital Signs Vital Signs Vital Signs: 10/29/24 13:00 10/29/24 13:46 10/29/24 14:43 Temperature 98.7 F 98.3 F Temperature Source Oral Pulse Rate 69 70 71 Pulse Strength Respiratory Rate 15 16 15 Respiratory Effort Respiratory Depth Respiratory Pattern Blood Pressure 100/74 107/78 112/81 H Blood Pressure Mean 82 87 91 Blood Pressure Source Monitor Blood Pressure Position Semi-Fowlers Blood Pressure Location Right Arm Pulse Ox 100 100 100 Oxygen Delivery Method Room Air Room Air 10/29/24 15:29 10/29/24 18:40 10/29/24 19:58 Temperature 98.6 F Temperature Source Oral Pulse Rate 76 Pulse Strength Normal (2+) Respiratory Rate 16 Respiratory Effort Normal Non-Labored Respiratory Depth Normal Respiratory Pattern Normal Blood Pressure 108/78 Blood Pressure Mean 88 Blood Pressure Source Monitor Blood Pressure Position Semi-Fowlers Blood Pressure Location Left Arm Pulse Ox 100 Oxygen Delivery Method Room Air Room Air 10/29/24 19:59 10/29/24 21:16 10/30/24 02:26 Temperature 98.4 F 98 F Temperature Source Temporal Oral Pulse Rate 71 64 Pulse Strength Respiratory Rate 15 16 Respiratory Effort Normal Non-Labored Respiratory Depth Normal Respiratory Pattern Normal Blood Pressure 97/67 92/69 Blood Pressure Mean 77 76 Blood Pressure Source Monitor Monitor Blood Pressure Position Semi-Fowlers Supine Blood Pressure Location Left Arm Left Arm Pulse Ox 98 96 Oxygen Delivery Method Room Air Room Air Room Air 10/30/24 08:13 10/30/24 08:14 10/30/24 09:46 Temperature 97.9 F Temperature Source Oral Pulse Rate 77 Pulse Strength Normal (2+) Respiratory Rate 16 Respiratory Effort Normal Non-Labored Respiratory Depth Normal Respiratory Pattern Normal Blood Pressure 103/77 Blood Pressure Mean 85 Blood Pressure Source Monitor Blood Pressure Position Semi-Fowlers Blood Pressure Location Left Arm Pulse Ox 100 Oxygen Delivery Method Room Air Room Air Weight Weight: 62.6 kg Body Mass Index (BMI) 23.6 EEG Results Procedure Details EEG Procedure Details: FREDI ARANA is a 34 year old F with a past medical history of , who presents for evaluation of Electroencephalogram on DATE at TIME NIHSS NIHSS Nursing Documentation NIHSS Nursing Documentation: NIHSS: Ischemic Stroke/TIA Start: 10/29/24 14:46 Text: For PCU Patients: NIH and Neuro Check every 4 Status: Complete hours, PRN and with change in RN caregiver. Freq: [id number] Protocol: Activity Type Activity Date Activity User E-sign Co-sign Detail Recorded Client Recorded Date Recorded By Document 10/29/24 21:17 TD [id number] 10/29/24 21:17 TD 10/29/24 21:17 NIH Stroke Scale [NIHSS] A score of 0 is normal or asymptomatic . Total possible score is 42. Inpatient: RN or Physician to activate a stroke alert for onset of new stroke symptoms or with NIHSS increase >/= 3 points. Following change in neurological status, NIHSS will be performed per physician order or more frequently PRN. -1a. Level of Consciousness Alert; keenly responsive -1b. LOC Questions Answers BOTH questions correctly. -1c. LOC Commands Performs both tasks correctly . -2. Best Gaze Normal -3. Visual No visual loss -4. Facial Palsy Normal symmetrical movements -5a. Left Arm No drift; arm holds 90 (or 45 ) degrees for full 10 seconds -5b. Right Arm No drift; arm holds 90 (or 45 ) degrees for full 10 seconds -6a. Left Leg No drift; leg holds 30-degree position for full 5 seconds -6b. Right Leg No drift; leg holds 30-degree position for full 5 seconds -7. Limb Ataxia Absent -8. Sensory Normal; no sensory loss -9. Best Language No aphasia; normal -10. Dysarthria Normal -11. Extinction and Inattention No abnormality -Total 0 Query Text:A score of 0 is normal or asymptomatic. Total possible score is 42 . ED: Notify Physician for NIHSS increase by > / = 3 points. Inpatient: RN or Physician to activate a stroke alert for NIHSS increase of > / = 3 points. Coma Scale [Assess] -Eye Opening Spontaneous -Motor Obeys Commands -Verbal Oriented [Total] -Coma Scale Total 15 NIHSS 1a. Level of Consciousness: Alert; keenly responsive 1b. LOC Questions: Answers BOTH questions correctly. 1c. LOC Commands: Performs both tasks correctly. 2. Best Gaze: Normal 3. Visual: No visual loss 4. Facial Palsy: Normal symmetrical movements 5a. Left Arm: No drift; arm holds 90 (or 45) degrees for full 10 seconds 5b. Right Arm: No drift; arm holds 90 (or 45) degrees for full 10 seconds 6a. Left Leg: No drift; leg holds 30-degree position for full 5 seconds 6b. Right Leg: No drift; leg holds 30-degree position for full 5 seconds 7. Limb Ataxia: Present in 2 limbs 8. Sensory: Normal; no sensory loss 9. Best Language: No aphasia; normal 10. Dysarthria: Normal 11. Extinction and Inattention: No abnormality Total: 2 Physical Exam Narrative General: The patient appears nutritionally appropriate, well-groomed, and appears comfortable in no acute distress. Mental Status:? The patient?s mental status was normal including orientation.? Language was intact.? Cranial nerves:? Visual gonzalez full, and extra-ocular motion was intact. Symmetric face. Motor: Normal strength in all extremities. Sensation: Intact to touch in all extremities.? Coordination:? Ataxia noticed in RUE and RLE on finger to nose. Gait:? deferred. Lab / Micro Data 10/30/24 05:30 10/30/24 05:30 Labs: Laboratory Results - last 24 hr 10/30/24 05:30: WBC 5.3, RBC 4.00 L, Hgb 11.8 L, Hct 36.3 L, MCV 90.8, MCH 29.5, MCHC 32.5, RDW Std Deviation 41.5, RDW Coeff of Ramona 12.6, Plt Count 256, MPV 9.5, Immature Gran % (Auto) 0.000, Neut % (Auto) 32.7 L, Lymph % (Auto) 57.3 H, Lenoir % (Auto) 4.3, Eos % (Auto) 5.1 H, Baso % (Auto) 0.6, Absolute Neuts (auto) 1.7 L, Absolute Lymphs (auto) 3.03, Nucleated RBC % 0, Sodium 140, Potassium 4.0, Chloride 109 H, Carbon Dioxide 20.4 L, Anion Gap 10, BUN 9, Creatinine 0.99, Estim Creat Clear Calc 67.84, Est GFR (MDRD) Non-Af 76, BUN/Creatinine Ratio 9.4 L, Glucose 89, Hemoglobin A1c 4.8 L, Calcium 8.9, Triglycerides 86, Cholesterol 166, LDL Cholesterol, Calc 103, VLDL Cholesterol 17, HDL Cholesterol 46, Cholesterol/HDL Ratio 3.64, TSH 2.510 Imaging Radiology Impression Brain MRI 10/29/24 14:30 IMPRESSION: Unremarkable unenhanced MRI images of the brain. Reading Location: [facility] Active Medications Active Medications Active Medications: Current Medications Generic Name Dose Route Start Last Admin Trade Name Freq PRN Reason Stop Dose Admin Acetaminophen 650 mg 10/29/24 14:46 Acetaminophen 325 Mg Tablet PO Q6H PRN PRN Pain 1-10 Or Fever >100.7 Albuterol Sulfate 2.5 mg 10/29/24 14:46 Albuterol 2.5 Mg/3 Ml Vial.Neb. INHALATION Q2H PRN PRN SOB &/OR WHEEZING Aspirin 81 mg 10/30/24 08:00 10/30/24 09:51 Aspirin 81 Mg Tab.Chew PO Not Given BREAKFAST CARMEN Hydralazine HCl 5 mg 10/29/24 14:46 Hydralazine 20 Mg/Ml Vial IV 10/30/24 14:46 Q30M PRN maintain BP parameters with HR <60 Ibuprofen 600 mg 10/29/24 14:46 10/30/24 12:31 Ibuprofen 600 Mg Tablet PO 600 mg Q6H PRN PRN Administration Pain Score 1-10 Labetalol HCl 10 - 20 mg 10/29/24 14:46 Labetalol 20mg/4ml Syringe IV 10/30/24 14:46 Q10M PRN PRN maintain BP parameters with HR >/=60 Loratadine 10 mg 10/30/24 10:00 10/30/24 09:50 Loratadine 10 Mg Tablet PO Not Given DAILY CRAMEN Lorazepam 0.5 mg 10/29/24 14:46 10/29/24 18:54 Lorazepam 0.5 Mg Tablet PO 0.5 mg X1 PRN Administration Anxiety with MRI Melatonin 3 mg 10/29/24 14:46 10/29/24 21:21 Melatonin 3 Mg Tablet PO 3 mg QHS PRN PRN Administration INSOMNIA Ondansetron HCl 4 mg 10/29/24 14:46 Ondansetron 4 Mg/2 Ml Vial IV Q8H PRN PRN NAUSEA/VOMITING Pantoprazole Sodium 40 mg 10/29/24 22:00 10/30/24 09:50 Pantoprazole Sodium 40 Mg Tablet PO Not Given BID CARMEN Prochlorperazine Edisylate 5 mg 10/29/24 14:46 Prochlorperazine 10 Mg/2 Ml Vial IV Q4H PRN PRN Breakthrough Nausea/Vomiting Senna/Docusate Sodium 2 tablet 10/29/24 14:46 Senna/Docusate Sodium 1 Tablet PO BID PRN PRN Constipation Sodium Chloride 10 - 40 ml 10/29/24 14:50 0.9% Saline Lock 10 Ml Syringe IV UD PRN SALINE FLUSH
--- NOTE | 2024-10-30 12:51 | MRI_ITS ---
EXAM: BRAIN WITH CONTRAST CLINICAL HISTORY: DIZZINESS COMPARISON: 10/29/2024 TECHNIQUE: PROCEDURE: Limited axial and coronal postcontrast images were obtained. IV CONTRAST: Clariscan 12 mL FINDINGS: Limited postcontrast images were obtained of the brain. There is no abnormal enhancement. No parenchymal abnormality identified. The ventricles and sulci are normal in appearance.No extra-axial collection or midline shift. The posterior fossa structures are within normal limits. The orbits and paranasal sinuses are unremarkable.The calvarium and soft tissues are unremarkable. MRI/Brain WITH Contrast IMPRESSION: 1. Limited postcontrast images of the brain with no abnormal enhancement. Reading Location: [facility]
--- NOTE | 2024-10-30 12:51 | CT_ITS ---
PROCEDURE: CTA HEAD AND NECK W/ CONTRAST 10/30/2024 REASON FOR EXAM: DIZZINESS TECHNIQUE: Cervical CT angiogram with contrast and intracranial CT angiogram with contrast (combined dictation). CONTRAST: Isovue 370 VOLUME: 90mL. One or more dose reduction techniques were used (e.g., Automated exposure control, adjustment of the mA and/or kV according to patient size, use of iterative reconstruction technique). RADIATION DOSE SUMMARY: CTDlvol: 85.13 mGy DLP: 1335.48 mGycm COMPARISON: Brain MRI of 10/29/2024. FINDINGS: Cervical CT angiogram: No area of stenosis or obstruction is seen. No aneurysm is noted. Intracranial CT angiogram: No area of stenosis or obstruction is seen. No aneurysm is identified. Mild degenerative changes of the cervical spine are seen. CT/CTA Head AND Neck W/ Contrast IMPRESSION: No area of stenosis or obstruction. No aneurysm is seen. Reading Location: [id number]
[2024-10-30] MEDS: Meclizine HCl 25 MG Tablet PO (13:35)
[2024-10-30 14:56] VITALS: BP 109/72; PULSE 76; RESP 16; TEMP 36.3; O2SAT 97
[2024-10-30] MEDS: LORazepam 0.5 MG Tablet PO (14:58)
[2024-10-30 15:19] VITALS: BMI 23.6
[2024-10-30 18:44] VITALS: BP 110/77; PULSE 84; RESP 16; TEMP 36.8; O2SAT 99
[2024-10-30] MEDS: Acetaminophen 325 MG Tablet 650 MG PO (20:55)
[2024-10-30] MEDS: MELATONIN 3 MG TABLET PO (20:55)
[2024-10-30 20:58] VITALS: BP 105/70; PULSE 70; RESP 16; TEMP 36.6; O2SAT 98
[2024-10-31 00:17] VITALS: BMI 23.6
[2024-10-31 01:54] VITALS: BP 96/72; PULSE 68; RESP 15; TEMP 36.4; O2SAT 98
[2024-10-31 07:22] VITALS: O2SAT 98
[2024-10-31 08:36] VITALS: BP 111/80; PULSE 78; RESP 16; TEMP 36.5; O2SAT 99
--- NOTE | 2024-10-31 10:14 | CASEMGMT ---
OSWALD NASH note: RN CM to room. Pt resting in bed. Family @ bedside. Discussed discharge and therapy's recommendations for OP vestibular therapy. Pt states is interested in doing OP therapy and plans to go to [facility] therapy in [place], where her friend who is a therapist, works. She was provided w/OP script and made aware she can take it to [facility]' or any other location of choice. She voices appreciation. She denies having any other discharge needs or concerns. Rogelio FERNANDO RN CM
--- NOTE | 2024-10-31 10:27 | PCM.PN.HOSP ---
Reason for Visit Reason for Visit: Diagnoses Dizziness and giddiness (10/29/24) Subjective Subjective Dizziness much improved. Able to get up and ambulate without significant dizziness. Objective Data Objective Data Vital Signs: Vital Signs Temp Pulse Resp BP Pulse Ox O2 Del Method 36.5 C L 78 16 111/80 99 Room Air 10/31/24 08:36 10/31/24 08:36 10/31/24 08:36 10/31/24 08:36 10/31/24 08:36 10/31/24 08:36 Oxygen Delivery Method Room Air Weight: 62.6 kg Body Mass Index (BMI) 23.6 Intake & Output: Intake and Output for Last 24 Hours 10/29/24 10/30/24 10/31/24 23:59 23:59 23:59 Intake Total 3360.83 / 3360.83 4599.17 / 4599.17 100 / 100 Output Total 500 / 500 Balance 2860.83 / 2860.83 4599.17 / 4599.17 100 / 100 Lab / Micro Data 10/30/24 05:30 10/30/24 05:30 Radiography Diagnostic Testing: Radiology Impression Brain MRI 10/30/24 12:51 IMPRESSION: 1. Limited postcontrast images of the brain with no abnormal enhancement. Reading Location: [facility] Head/Neck CTA 10/30/24 12:51 IMPRESSION: No area of stenosis or obstruction. No aneurysm is seen. Reading Location: [address] Physical Exam Const alert and no apparent distress Eyes Eyes Narrative: Resolved nystagmus bilaterally. Assessment & Plan Assessment/Plan (1) Vertigo: PLAN: 2/2 BPPV. MRI negative for CVA. DC with oupt vestibular therapy and PRN meclizine. Neurology requested MRI of the head as well as CTA of the head and neck. Those were performed and were unremarkable. On MRI read took until this morning to get back despite being done on the . X-ray the patient that her symptoms are due to BPPV and recommended meclizine as needed, vestibular therapy Patient to be discharged home today Charges/Coding Visit Charges Inpatient E&M: 16081 Disch Hosp
--- NOTE | 2024-10-31 10:40 | CASEMGMT ---
SW did not complete a PHQ 9 as patient did not have a Stroke or TIA. Jill BATISTA
== END 2024-10-31 11:21 | disposition home or self-care (01) ==
LOC: ED 13:25 → PCU 10-30 06:54
PROVIDERS: Admitting Provider Internal Medicine; Emergency Provider Emergency Medicine; PCP Registered Nurse
DX: H81.12 Benign paroxysmal vertigo, left ear (principal); H81.4 Vertigo of central origin; R51.9 Headache, unspecified; J30.2 Other seasonal allergic rhinitis; R13.10 Dysphagia, unspecified; K58.9 Irritable bowel syndrome, unspecified; E78.5 Hyperlipidemia, unspecified; K21.9 Gastro-esophageal reflux disease without esophagitis; Z79.899 Other long term (current) drug therapy
CPT/HCPCS: 36415; 70450; 70496; 70498; 70551; 70552; 80048; 80061; 81001; 83036; 84443; 84703; 85025; 85027; 92611; 93005; 96374; 96375; 97162; 97802; 99221; 99285; A9575; Q9967; A4216; G0378; J2405

== ENCOUNTER → 2025-05-02 | Outpatient (CLI) | payer MEDICAID, SELFPAY ==
--- NOTE | 2025-05-02 14:28 | US_ITS ---
PROCEDURE: PELVIC W/ TRANSVAGINAL 05/02/2025 REASON FOR EXAM: LEFT OVARIAN CYST 5 para 4 1st day of last menstrual period was 04/25/2025 TECHNIQUE: Procedure Code: [id number] Modality: US Procedure: PELVIC W/ TRANSVAGINAL COMPARISON: None FINDINGS: Measurements: Uterus: 8.1 x 4.4 x 3.3 with a volume of 62 mL Endometrial Thickness: 8 Right Ovary: 3.7 x 3.1 x 2.4 with a volume of 14 mL. Left Ovary: 2.7 x 2.5 x 1.8 with a volume of 6 mL. Uterus: The uterus is anteverted and anteflexed. The endometrium has a trilaminar appearance. Nabothian cysts are seen in the cervix. Endometrium: The endometrium has a trilaminar appearance. Right ovary: Small follicles are seen. There are no masses. There is blood flow to the ovary. Left ovary: There are no masses seen. There is blood flow to the ovary. Other: There is no fluid in the cul-de-sac. Prevoid urinary bladder measures 8.1 x 6.5 x 11.1 cm. Prevoid urinary bladder volume is 308 mL. Postvoid urinary bladder measures 7.6 x 7.1 x 3.9 cm. Postvoid urinary bladder volume measures 109 mL. US/Pelvic w/ Transvaginal IMPRESSION: Uterus is anteverted and anteflexed. Endometrial stripe thickness measures 8 mm. 1st day of last menstrual period w as 04/25/2025 Normal appearance to the right ovary. Normal appearance to the left ovary. Reading Location: [id number]
== END | disposition home or self-care (01) ==
LOC: US 14:25
PROVIDERS: PCP Registered Nurse; Referring Provider Nurse Practitioner Women's Health; Visit Provider Nurse Practitioner Women's Health
DX: R10.2 Pelvic and perineal pain (principal)
CPT/HCPCS: 76830; 76856

== ENCOUNTER → 2025-05-16 | Outpatient (CLI) | payer MEDICAID, SELFPAY ==
--- NOTE | 2025-05-16 08:15 | BI_ITS ---
EXAM: SCRN MAMM (CAD)W/SARAH BILAT DATE: 05/16/2025 CLINICAL HISTORY: F, Age 34 y/o , SCREENING FOR BREAST CANCER TECHNIQUE: Procedure Code: [id number] Modality: MG Procedure: SCRN MAMM (CAD)W/SARAH BILAT COMPARISON: Baseline examination, no priors. FINDINGS: TISSUE DENSITY: There are scattered areas of fibroglandular density. Bilateral Breast Mammographic Findings: No significant masses, calcifications or other abnormalities are identified. BI/SCRN MAMM (CAD)W/SARAH BILAT IMPRESSION: There is no mammographic evidence of malignancy. OVERALL FINAL ASSESSMENT BI-RADS 1: NEGATIVE. RECOMMENDATION: Routine annual follow-up in 1 Year Additional Recommendation none A letter with findings and recommendations will be mailed to the patient. Reading Location: [id number]
== END | disposition home or self-care (01) ==
LOC: OPBI 08:17
PROVIDERS: PCP Registered Nurse; Referring Provider Nurse Practitioner Women's Health; Visit Provider Nurse Practitioner Women's Health
DX: Z12.31 Encounter for screening mammogram for malignant neoplasm of breast (principal)
CPT/HCPCS: 77063; 77067